=== PATIENT | male | born 1960 | race Caucasian/White ===

== ENCOUNTER 2016-05-13 16:01 | Emergency (ER) | payer MEDICAID ==
--- NOTE | 2016-05-13 16:29 | ER Document Report ---
ED Medical Screen (RME) - General Stated Complaint: LIGHTHEADED,SHORTNESS OF BREATH Notes: 55 yo male c/o shortness of breath, lightheaded and chest tightness since yesterday. no known cardiac hx. + hx/o COPD, HTN. previous smoker, quit 22yr ago. TRAVEL OUTSIDE OF THE [place] IN LAST 30 DAYS: No - Related Data Allergies/Adverse Reactions: bees Allergy (Severe, Uncoded 02/19/16 08:30) Anaphylaxis Past Medical History - Past Medical History Cardiac Medical History: Reports: Hx Atrial Fibrillation, Hx Hypertension Denies: Hx Coronary Artery Disease, Hx Heart Attack Pulmonary Medical History: Reports: Hx Asthma, Hx Bronchitis, Hx COPD, Hx Pneumonia Denies: Hx Tuberculosis Neurological Medical History: Denies: Hx Cerebrovascular Accident, Hx Seizures Musculoskeltal Medical History: Reports Hx Arthritis, Reports Hx Musculoskeletal Deformity - back problems Traumatic Medical History: Reports: Hx Fractures - r ankle Past Surgical History: Reports: Hx Appendectomy, Hx Orthopedic Surgery. Denies : Hx Pacemaker - Immunizations Immunizations up to date: Yes Hx Diphtheria, Pertussis, Tetanus Vaccination: Yes Physical Exam - Vital signs Vitals: Temp Pulse Resp BP Pulse Ox 98.0 F 106 H 20 152/96 H 98 05/13/16 16:13 05/13/16 16:13 05/13/16 16:13 05/13/16 16:13 05/13/16 16:13 Course - Vital Signs Vital signs: Temp Pulse Resp BP Pulse Ox 98.0 F 106 H 20 152/96 H 98 05/13/16 16:13 05/13/16 16:13 05/13/16 16:13 05/13/16 16:13 05/13/16 16:13
[2016-05-13] MEDS ORDERED: ASPIRIN 81 MG TABLET, CHEWABLE PO ONE (16:30)
[2016-05-13 17:05] LABS: ABSOLUTE BASOPHILS # (AUTO) 0.1 10^3/uL (0.0-0.2); ABSOLUTE EOSINOPHILS # (AUTO) 0.3 10^3/uL (0.0-0.6); ABSOLUTE LYMPHOCYTES (AUTO) 2.1 10^3/uL (0.5-4.7); ABSOLUTE MONOCYTES (AUTO) 0.6 10^3/uL (0.1-1.4); ABSOLUTE NEUT (AUTO) 7.2 10^3/uL (1.7-8.2); EOSINOPHILS % (AUTO) 2.6 % (0-6); HEMATOCRIT 42.4 % (37.9-51.0); HEMOGLOBIN 14.1 g/dL (13.5-17.0); HGB HCT DIFFERENCE -0.1; LYMPHOCYTES % (AUTO) 20.4 % (13-45); MEAN CORPUSCULAR HEMOGLOBIN 28.3 pg (27.0-33.4); MEAN CORPUSCULAR HGB CONC 33.3 g/dL (32.0-36.0); MEAN CORPUSCULAR VOLUME 85 fl (80-97); MONOCYTES % (AUTO) 5.4 % (3-13); RED BLOOD COUNT 4.99 10^6/uL (4.35-5.55); RED CELL DISTRIBUTION WIDTH 13.7 % (11.5-14.0); SEGMENTED NEUTROPHILS % (AUTO) 70.6 % (42-78); WHITE BLOOD COUNT 10.3 10^3/uL (4.0-10.5)
[2016-05-13 17:13] LABS: APPEARANCE,URINE CLEAR; BILIRUBIN,URINE NEGATIVE (NEGATIVE); GLUCOSE, URINE NEGATIVE (NEGATIVE); KETONES,URINE NEGATIVE (NEGATIVE); LEUKOCYTE ESTERASE,URINE NEGATIVE (NEGATIVE); NITRITE,URINE NEGATIVE (NEGATIVE); PROTEIN,URINE NEGATIVE (NEGATIVE); URINE SPECIFIC GRAVITY 1.018; UROBILINOGEN,URINE NEGATIVE mg/dL (<2.0)
[2016-05-13 17:26] LABS: ALANINE AMINOTRANSFERASE 45 U/L (21-72); ALBUMIN 4.4 g/dL (3.5-5.0); ALKALINE PHOSPHATASE 76 U/L (38-126); ANION GAP 15 (5-19); ASPARTATE AMINO TRANSFERASE 28 U/L (17-59); BILIRUBIN,TOTAL 0.6 mg/dL (0.2-1.3); BLOOD UREA NITROGEN 19 mg/dL (7-20); CARBON DIOXIDE 27 mmol/L (22-30); CHLORIDE 99 mmol/L (98-107); CREATINE KINASE 53 U/L (55-170); CREATININE RESULT 1.29 mg/dL (0.52-1.25); GLUCOSE 99 mg/dL (75-110); POTASSIUM 4.5 mmol/L (3.6-5.0); SODIUM 141.1 mmol/L (137-145); TOTAL PROTEIN 7.8 g/dL (6.3-8.2)
[2016-05-13 17:40] LABS: CREATINE KINASE MB < 0.22 ng/mL (<4.55); TROPONIN I < 0.012 ng/mL
--- NOTE | 2016-05-13 22:03 | ER Document Report ---
ED General - General Chief Complaint: Chest Tightness Stated Complaint: LIGHTHEADED,SHORTNESS OF BREATH Notes: Patient is a 55-year-old male presents with complaint of some chest tightness as well as difficulty breathing. Patient is a former smoker. Says he has been having some cough congestion and some wheezing over last few days. He does not have actual chest pain. He says his lungs just felt tight because of the shortness of breath. No fevers. No vomiting. No trauma. No other complaints at this time. TRAVEL OUTSIDE OF THE [place] IN LAST 30 DAYS: No - Related Data Allergies/Adverse Reactions: bees Allergy (Severe, Uncoded 05/13/16 16:27) Anaphylaxis Past Medical History - Social History Smoking Status: Former Smoker Chew tobacco use (# tins/day): No Frequency of alcohol use: None Drug Abuse: None Family History: Reviewed & Not Pertinent Patient has suicidal ideation: No Patient has homicidal ideation: No - Past Medical History Cardiac Medical History: Reports: Hx Atrial Fibrillation, Hx Hypertension Denies: Hx Coronary Artery Disease, Hx Heart Attack Pulmonary Medical History: Reports: Hx Asthma, Hx Bronchitis, Hx COPD, Hx Pneumonia Denies: Hx Tuberculosis Neurological Medical History: Denies: Hx Cerebrovascular Accident, Hx Seizures Renal/ Medical History: Denies: Hx Peritoneal Dialysis Musculoskeltal Medical History: Reports Hx Arthritis, Reports Hx Musculoskeletal Deformity - back problems Traumatic Medical History: Reports: Hx Fractures - r ankle Past Surgical History: Reports: Hx Appendectomy, Hx Orthopedic Surgery. Denies : Hx Pacemaker - Immunizations Immunizations up to date: Yes Hx Diphtheria, Pertussis, Tetanus Vaccination: Yes Hx Pneumococcal Vaccination: 05/13/09 Review of Systems - Review of Systems Notes: My Normal Review Basic REVIEW OF SYSTEMS: CONSTITUTIONAL : Denies fever, chills, or sweats. Denies recent illness. EENT: Congestion CARDIOVASCULAR: Some chest tightness. RESPIRATORY: Current cough. Some wheezing. GASTROINTESTINAL: Denies abdominal pain. Denies nausea, vomiting, or diarrhea. Denies constipation. Last BM: MUSCULOSKELETAL: Denies neck or back pain or joint pain or swelling. SKIN: Denies rash or skin lesions. NEUROLOGICAL: Denies altered mental status or loss of consciousness. Denies headache. Denies weakness or paralysis or loss of use of either side. Denies problems with gait or speech. Denies sensory or motor loss. ALL OTHER SYSTEMS REVIEWED AND NEGATIVE. Physical Exam - Vital signs Vitals: Temp Pulse Resp BP Pulse Ox 98.0 F 106 H 20 152/96 H 98 05/13/16 16:13 05/13/16 16:13 05/13/16 16:13 05/13/16 16:13 05/13/16 16:13 - Notes Notes: General Appearance: Well nourished, alert, cooperative, no acute distress, no obvious discomfort. Vitals: reviewed, See vital signs table. Head: no swelling or tenderness to the head Eyes: PERRL, EOMI, Conjuctiva clear Mouth: No decreasd moisture Neck: Supple, no neck tenderness, No thyromegaly Lungs: Scattered wheezing, No rales, No rhonci, No accessory muscle use, fair air exchange bilaterally. Heart: Normal rate, Regular rythm, No murmur, no rub Abdomen: Normal BS, soft, No rigidity, No abdominal tenderness, No guarding, no rebound, no abdominal masses, no organomegaly Extremities: strength 5/5 in all extremities, good pulses in all extremities, no swelling or tenderness in the extremities, no edema. Skin: warm, dry, appropriate color, no rash Neuro: speech clear, oriented x 3, normal affect, responds appropriately to questions. Course - Vital Signs Vital signs: Temp Pulse Resp BP Pulse Ox 98.4 F 94 16 124/79 97 05/14/16 00:58 05/14/16 00:58 05/14/16 00:58 05/14/16 00:58 05/14/16 00:58 - Laboratory Result Diagrams: 05/13/16 16:38 05/13/16 16:38 Laboratory results interpreted by me: 05/13/16 05/13/16 16:38 16:38 Creatinine 1.29 H Est GFR (Non-Af Amer) 58 L Creatine Kinase 53 L Urine Blood MODERATE H - EKG Interpretation by Me Additional EKG results interpreted by me: 05/13/16 22:03 EKG is reviewed and interpreted by me. EKG shows sinus tachycardia with rate [address] segment elevation or depression. No ischemic T wave inversions. LA interval, QRS duration, Intervals Are within Normal Range. No Old EKG Available for Comparison. - Transfer of Care Notes: 05/14/16 07:23 After the breathing treatment patient's wheezing is improved. His air movement has improved. He says the chest tightness is much improved with the breathing treatment. He has no actual chest pain. I do not think this is cardiac in nature. I think this is purely pulmonary related being that his symptoms improved with the breathing treatment. At this time I'll send him home with an inhaler and placement prednisone. I encouraged to return to ER immediately if he has actual pain in his chest, difficulty breathing, recurrent wheezing, or any worsening of his symptoms. Patient agrees with plan will be discharged home. Dictation of this chart was performed using voice recognition software; therefore, there may be some unintended grammatical errors. Discharge - Discharge Clinical Impression: Chest tightness, Bronchitis Condition: Good Disposition: HOME, SELF-CARE Additional Instructions: BRONCHITIS WITH BRONCHOSPASM (WHEEZING): You have bronchitis with bronchospasm (wheezing). Sometimes people develop wheezing with a chest cold. This occurs either because of an underlying tendency toward asthma or because the virus itself irritates the bronchial tubes. This irritation causes cough, shortness of breath, and wheezing. Emergency treatment of bronchospasm may include adrenaline shots or bronchodilator aerosol. You may feel lightheaded and have a rapid pulse for an hour or two. Rest and get plenty of fluids. At home, we'll treat you with a bronchodilator inhaler. Corticosteroids may be required for some patients. Until you recover, avoid chemical fumes, dusts, pollens, and exercising in very cold or dry air. If you smoke, stop now! Most cases of bronchitis get better without antibiotics. We prescribe antibiotics when we believe bacteria are damaging your airways, or if there's high risk the bronchitis will worsen into pneumonia. Increase your fluid intake. A cool mist humidifier may make your lungs more comfortable. An expectorant (cough medicine that loosens phlegm) can help. Repeated episodes of bronchitis and bronchospasm may result in lung damage -- for example, chronic bronchitis, recurrent pneumonias, or emphysema. If you develop a fever, increased wheezing, chest pain, or severe shortness of breath, you should contact the doctor immediately. INHALED BRONCHODILATORS: You have received a treatment of and/or prescription for an inhaled bronchodilator -- a medication which stimulates the airways in the lung to dilate. This improves the flow of air in asthma, bronchitis, and emphysema. These medicines have some similarity to adrenaline, and can cause similar side effects: shakiness, racing heart, and a sense of nervousness. These side effects decrease with time. Contact your doctor if these side effects are severe. Do not over-use the medicine. Too-frequent use of the inhaler may make it ineffective. Call your doctor if the inhaler is not controlling your symptoms at the prescribed doses. STEROID MEDICATION: You have been given an injection of or oral medicine of the cortisone/ steroid class. This medication is used to control inflammation or allergy. Zackery t is usually only given for a short period of time, until the acute process subsides. There are usually no side effects from short-term use of cortisone-like medications. Some persons feel an increased sense of well-being and are not sleepy at bedtime. Long-term use of cortisone medications is best avoided, unless required for a severe condition. If your condition does not remit, or relapses after the course of corticosteroid medication, you should consult your physician. FOLLOW-UP CARE: If you have been referred to a physician for follow-up care, call the physician s office for an appointment as you were instructed or within the next two days. If you experience worsening or a significant change in your symptoms, notify the physician immediately or return to the Emergency Department at any time for re-evaluation. Please return to ER if instead of having chest tightness you have actual chest pain. Please return to ER immediately if you have worsening difficulty breathing, worsening wheezing, fevers, or feel unwell. Please follow-up with your doctor in 2-3 days for reevaluation. Please use inhaler as 2 puffs every 4 hours as needed for wheezing. Prescriptions: Prednisone [Deltasone 20 mg Tablet] 3 tab PO DAILY 4 Days Forms: Return to Work Referrals: TRINA WONG MD [Primary Care Provider] - 05/15/16
[2016-05-13] MEDS ORDERED: IPRATROPIUM/ALBUTEROL 0.5-2.5 MG/3 ML AMPUL NEB ONE (22:06)
[2016-05-13] MEDS ORDERED: PREDNISONE 20 MG TABLET PO ONE (22:07)
[2016-05-14] MEDS ORDERED: ALBUTEROL SULFATE HFA (90 MCG/PUFF) 8 GM MDI (1 MDI/ER DISP) IH ONE (00:03)
[2016-05-14 01:00] VITALS: BP 124/79
--- NOTE | 2016-05-14 11:28 | EKG REPORT ---
SEVERITY:- OTHERWISE NORMAL ECG - SINUS TACHYCARDIA : Confirmed by: Vanessa Frias 14-May-2016 11:27:20
== END 2016-05-14 01:00 | disposition home or self-care (01) ==
LOC: ER 16:01
DX: J40 Bronchitis, not specified as acute or chronic (principal); R07.9 Chest pain, unspecified; R06.02 Shortness of breath; Z87.891 Personal history of nicotine dependence; Z91.030 Bee allergy status
CPT/HCPCS: 93005; 94640; 99285; 36415; 82553; 82550; 85025; 80053; 81001; 84484; 71020; 93010; J7512; J3490; J7620

== ENCOUNTER 2017-05-07 12:21 | Emergency (ER) | payer MEDICAID ==
[2017-05-07] MEDS ORDERED: DEXAMETHASONE SOD PHOS INJ 10 MG/1 ML VIAL IM ONE (13:27)
[2017-05-07] MEDS ORDERED: IPRATROPIUM/ALBUTEROL 0.5-2.5 MG/3 ML AMPUL NEB ONE (13:27)
--- NOTE | 2017-05-07 13:30 | ER Document Report ---
HPI - HPI Pain Level: 3 Notes: Patient is a 56-year-old male with a history of COPD and emphysema who presents to the ED complaining of a dry nonproductive cough, nasal congestion/discharge, fever, body ache, wheeze 1 week. Patient states that he is still eating and drinking without any difficulties. He is urinating normally and having normal bowel movements. Patient has not had any Tylenol or Motrin in the last 24 hours. He denies any drug allergies. Denies any other significant cardiac history. Denies any headache, fever, neck pain, sore throat, chest pain, palpitations, syncope, shortness of breath, dyspnea, abdominal pain, nausea/ vomiting/diarrhea, urinary retention, dysuria, hematuria, or rash. - ROS Systems Reviewed and Negative: Yes All other systems reviewed and negative - REPRODUCTIVE Reproductive: DENIES: : Past Medical History - Social History Smoking Status: Unknown if Ever Smoked Family History: Reviewed & Not Pertinent - Past Medical History Cardiac Medical History: Reports: Hx Atrial Fibrillation, Hx Hypertension Denies: Hx Coronary Artery Disease, Hx Heart Attack Pulmonary Medical History: Reports: Hx Asthma, Hx Bronchitis, Hx COPD, Hx Pneumonia Denies: Hx Tuberculosis Neurological Medical History: Denies: Hx Cerebrovascular Accident, Hx Seizures Renal/ Medical History: Denies: Hx Peritoneal Dialysis Musculoskeltal Medical History: Reports Hx Arthritis, Reports Hx Musculoskeletal Deformity - back problems Traumatic Medical History: Reports: Hx Fractures - r ankle Past Surgical History: Reports: Hx Appendectomy, Hx Orthopedic Surgery. Denies : Hx Pacemaker - Immunizations Immunizations up to date: Yes Hx Diphtheria, Pertussis, Tetanus Vaccination: Yes Hx Pneumococcal Vaccination: 05/13/09 Vertical Provider Document - CONSTITUTIONAL Agree With Documented VS: Yes Notes: PHYSICAL EXAMINATION: GENERAL: Well-appearing, well-nourished and in no acute distress. A&Ox4 HEAD: Atraumatic, normocephalic. EYES: Pupils equal round and reactive to light, extraocular movements intact, sclera anicteric, conjunctiva are normal. ENT: EAC clear b/l. TM's intact b/l without erythema, fluid, or perforation. Nares patent and with clear discharge. oropharynx mild erythema without exudates. 1+ tonsilar hypertrophy without erythema or exudate. No palatine shift. Uvula midline. No tongue protrusion. No drooling, hoarseness, or airway compromise. Moist mucous membranes. No sinus tenderness. NECK: Normal range of motion, supple without lymphadenopathy. No rigidity/ meningismus. LUNGS: wheezes b/l. decreased sounds. HEART: Regular rate and rhythm without murmurs, rubs, gallops. ABDOMEN: Soft, nontender, nondistended abdomen. No guarding, no rebound. No masses appreciated. Normal bowel sounds present. No CVA tenderness bilaterally. No hepatosplenomegaly. NEUROLOGICAL: Normal speech, normal gait. Normal sensory, motor exams PSYCH: Normal mood, normal affect. SKIN: Warm, Dry, normal turgor, no rashes or lesions noted. - INFECTION CONTROL TRAVEL OUTSIDE OF THE [place] IN LAST 30 DAYS: No - RESPIRATORY O2 Sat by Pulse Oximetry: 96 Course - Re-evaluation Re-evalutation: 05/07/17 14:50 Patient is an afebrile, well-hydrated, 56-year-old male who presents to the ED with influenza A. Vitals are stable. PE is otherwise unremarkable. Patient was given a DuoNeb, Decadron, and Tylenol. Patient does have a history of COPD. Lung sounds improved after treatment. Chest x-ray was unremarkable for any acute pathology. Low suspicion for any ACS, PE, pneumothorax, pericarditis , dissection, respiratory compromise, severe dehydration, sepsis, meningitis, or other systemic emergent condition at this time. Patient is aware that his condition can change from initial presentation and he needs to monitor symptoms closely and seek medical attention for any acute changes. Due to his comorbidities of COPD and wheezing on exam, I will send him home with a prescription for Tamiflu. Risks and benefits of treatment and without treatment were thoroughly reviewed with the patient and patient is in agreement. Recommend conservative measures for symptoms. Recheck with your PCM in 3-5 days. Return to the ED with any worsening/concerning symptoms otherwise as reviewed in discharge. Patient is in agreement. - Vital Signs Vital signs: Temp Pulse Resp BP Pulse Ox 100.3 F 116 H 18 132/75 H 96 05/07/17 12:33 05/07/17 12:33 05/07/17 12:33 05/07/17 12:33 05/07/17 12:33 Discharge - Discharge Clinical Impression: Influenza A Condition: Stable Disposition: HOME, SELF-CARE Additional Instructions: Maintain adequate fluid intake Take meds as directed tylenol/ibuprofen as needed over the counter cold medication as needed for symptoms Humidified air may help F/u: with your PCM in 2-3 days for a recheck Return to the ED with any fever, worsening pain, chest pain, palpitations, syncope, worsening BARTON, neck pain/stiffness, shortness of breath, wheezing, drooling, trouble swallowing/breathing, abdominal pain, n/v/d, rash, or worsening/concerning symptoms otherwise. Prescriptions: Oseltamivir Phosphate [Tamiflu] 75 mg PO BID #10 capsule Forms: Elevated Blood Pressure Referrals: [facility] [Provider Group] - Follow up as needed [facility] [Provider Group] - Follow up as needed
--- NOTE | 2017-05-07 14:33 | RADIOLOGY REPORT (SQ) ---
EXAM DESCRIPTION: CHEST PA/LAT COMPLETED DATE/TIME: 05/07/2017 2:16 pm REASON FOR STUDY: cough, fever COMPARISON: 05/13/2016 EXAM PARAMETERS: NUMBER OF VIEWS: two views TECHNIQUE: Digital Frontal and Lateral radiographic views of the chest acquired. RADIATION DOSE: NA LIMITATIONS: none FINDINGS: LUNGS AND PLEURA: Mild left basilar scarring. No acute opacities, masses or pneumothorax. No pleural effusion. MEDIASTINUM AND HILAR STRUCTURES: No masses or contour abnormalities. HEART AND VASCULAR STRUCTURES: Heart normal size. No evidence for failure. BONES: No acute findings. HARDWARE: None in the chest. OTHER: No other significant finding. IMPRESSION: No evidence of acute cardiopulmonary disease. TECHNICAL DOCUMENTATION: JOB ID: [id number] [employer]- All Rights Reserved
[2017-05-07 14:38] LABS: A TYPE INFLUENZA AG POSITIVE (NEGATIVE); B INFLUENZA AG NEGATIVE (NEGATIVE)
[2017-05-07] MEDS ORDERED: ACETAMINOPHEN 325 MG TABLET PO ONE (14:42)
[2017-05-07 15:03] VITALS: BP 140/80
== END 2017-05-07 15:03 | disposition home or self-care (01) ==
LOC: ER 12:21
DX: J09.X2 Influenza due to identified novel influenza A virus with other respiratory manifestations (principal); J44.9 Chronic obstructive pulmonary disease, unspecified; J43.9 Emphysema, unspecified; R05 Cough; R09.81 Nasal congestion; R09.89 Other specified symptoms and signs involving the circulatory and respiratory systems; R50.9 Fever, unspecified; M79.1 Myalgia
CPT/HCPCS: 94640; 99283; 96372; 87804; 71046; J1100; J7620

== ENCOUNTER 2017-08-06 21:12 | Emergency (ER) | payer MEDICARE, MEDICAID ==
[2017-08-06] MEDS ORDERED: IPRATROPIUM/ALBUTEROL 0.5-2.5 MG/3 ML AMPUL NEB ONE (22:35)
[2017-08-06] MEDS ORDERED: METHYLPREDNISOLONE INJ 125 MG/2 ML SDV IV ONE (22:35)
[2017-08-06] MEDS ORDERED: ASPIRIN 325 MG TABLET PO ONE (22:36)
--- NOTE | 2017-08-06 22:40 | ER Document Report ---
ED Respiratory Problem - General Chief Complaint: Shortness Of Breath Stated Complaint: SHORTNESS OF BREATH Time Seen by Provider: 08/06/17 22:22 Notes: The patient is a 57-year-old male, past medical history COPD, former smoker, presents with 2 days of wheezing, shortness of breath and chest pain when he takes deep breaths. He tried his albuterol at home without much relief of his symptoms. He denies leg swelling, hemoptysis, fevers, back pain, abdominal pain , nausea, vomiting, rash or headache. TRAVEL OUTSIDE OF THE [place] IN LAST 30 DAYS: No - Related Data Allergies/Adverse Reactions: bees Allergy (Severe, Uncoded 05/07/17 12:22) Anaphylaxis Past Medical History - General Information source: Patient - Social History Smoking Status: Former Smoker Family History: Reviewed & Not Pertinent - Past Medical History Cardiac Medical History: Reports: Hx Atrial Fibrillation, Hx Hypertension Denies: Hx Coronary Artery Disease, Hx Heart Attack Pulmonary Medical History: Reports: Hx Asthma, Hx Bronchitis, Hx COPD, Hx Pneumonia Denies: Hx Tuberculosis Neurological Medical History: Denies: Hx Cerebrovascular Accident, Hx Seizures Renal/ Medical History: Denies: Hx Peritoneal Dialysis Musculoskeltal Medical History: Reports Hx Arthritis, Reports Hx Musculoskeletal Deformity - back problems Traumatic Medical History: Reports: Hx Fractures - r ankle Past Surgical History: Reports: Hx Appendectomy, Hx Orthopedic Surgery. Denies : Hx Pacemaker - Immunizations Immunizations up to date: Yes Hx Diphtheria, Pertussis, Tetanus Vaccination: Yes Hx Pneumococcal Vaccination: 05/13/09 Review of Systems - Review of Systems Notes: REVIEW OF SYSTEMS: CONSTITUTIONAL: -fevers, -chills EENT: -eye pain, -difficulty swallowing, -nasal congestion CARDIOVASCULAR: +chest pain, -syncope. RESPIRATORY: -cough, +SOB GASTROINTESTINAL: -abdominal pain, -nausea, -vomiting, -diarrhea GENITOURINARY: -dysuria, -hematuria MUSCULOSKELETAL: -back pain, -neck pain SKIN: -rash or skin lesions. HEMATOLOGIC: -easy bruising or bleeding. LYMPHATIC: -swollen, enlarged glands. NEUROLOGICAL: -altered mental status or loss of consciousness, -headache, - neurologic symptoms PSYCHIATRIC: -anxiety, -depression. ALL OTHER SYSTEMS REVIEWED AND NEGATIVE. Physical Exam - Vital signs Vitals: Resp Pulse Ox 17 98 08/06/17 22:29 04/27/18 22:29 - Notes Notes: PHYSICAL EXAMINATION: GENERAL: Well-appearing, well-nourished and in no acute distress. HEAD: Atraumatic, normocephalic. EYES: Pupils equal round and reactive to light, extraocular movements intact, sclera anicteric, conjunctiva are normal. ENT: nares patent, oropharynx clear without exudates. Moist mucous membranes. NECK: Normal range of motion, supple without lymphadenopathy LUNGS: No respiratory distress, diffuse wheezing. Speaking in full sentences. HEART: Mild tachycardia, regular rhythm. ABDOMEN: Soft, nontender, normoactive bowel sounds. No guarding, no rebound. No masses appreciated. EXTREMITIES: Normal range of motion, no pitting or edema. No cyanosis. NEUROLOGICAL: Cranial nerves grossly intact. Normal speech, normal gait. Normal sensory and motor exams. PSYCH: Normal mood, normal affect. SKIN: Warm, Dry, normal turgor, no rashes or lesions noted. Course - Re-evaluation Re-evalutation: Patient appears well and is in no respiratory distress. He does have some wheezing diffusely. After Solu-Medrol and 3 duonebs, his wheezing completely resolved and he feels much better. Chest x-ray does not show any acute infiltrates and blood work is unremarkable. EKG does not show any ischemic changes and troponin is negative. Patient is low risk for PE, but unable to PERC out due to age and mild tachycardia. The d-dimer was negative, so this rules out PE. Provided patient with 4 more days of prednisone and a refill of his albuterol. Given very strict return precautions and he understands. - Vital Signs Vital signs: Temp Pulse Resp BP Pulse Ox 99 14 120/83 97 08/06/17 23:28 08/06/17 23:31 08/06/17 23:31 08/06/17 23:31 - Laboratory Result Diagrams: 08/06/17 23:28 08/07/17 00:26 Laboratory results interpreted by me: 08/06/17 08/07/17 23:28 00:26 WBC 11.4 H BUN 21 H Creatinine 1.33 H Est GFR (Non-Af Amer) 56 L Glucose 153 H - Diagnostic Test Radiology reviewed: Image reviewed, Reports reviewed Radiology results interpreted by me: CXR: NAD - EKG Interpretation by Me EKG shows normal: Sinus rhythm, Hubbard, Intervals, QRS Complexes, ST-T Waves Rate: Tachycardia Discharge - Discharge Clinical Impression: COPD exacerbation Condition: Stable Disposition: HOME, SELF-CARE Additional Instructions: BRONCHITIS WITH BRONCHOSPASM (WHEEZING): You have bronchitis with bronchospasm (wheezing). Sometimes people develop wheezing with a chest cold. This occurs either because of an underlying tendency toward asthma or because the virus itself irritates the bronchial tubes. This irritation causes cough, shortness of breath, and wheezing. Emergency treatment of bronchospasm may include adrenaline shots or bronchodilator aerosol. You may feel lightheaded and have a rapid pulse for an hour or two. Rest and get plenty of fluids. At home, we'll treat you with a bronchodilator inhaler. Corticosteroids may be required for some patients. Until you recover, avoid chemical fumes, dusts, pollens, and exercising in very cold or dry air. If you smoke, stop now! Most cases of bronchitis get better without antibiotics. We prescribe antibiotics when we believe bacteria are damaging your airways, or if there's high risk the bronchitis will worsen into pneumonia. Increase your fluid intake. A cool mist humidifier may make your lungs more comfortable. An expectorant (cough medicine that loosens phlegm) can help. Repeated episodes of bronchitis and bronchospasm may result in lung damage -- for example, chronic bronchitis, recurrent pneumonias, or emphysema. If you develop a fever, increased wheezing, chest pain, or severe shortness of breath, you should contact the doctor immediately. INHALED BRONCHODILATORS: You have received a treatment of and/or prescription for an inhaled bronchodilator -- a medication which stimulates the airways in the lung to dilate. This improves the flow of air in asthma, bronchitis, and emphysema. These medicines have some similarity to adrenaline, and can cause similar side effects: shakiness, racing heart, and a sense of nervousness. These side effects decrease with time. Contact your doctor if these side effects are severe. Do not over-use the medicine. Too-frequent use of the inhaler may make it ineffective. Call your doctor if the inhaler is not controlling your symptoms at the prescribed doses. STEROID MEDICATION: You have been given an injection of or oral medicine of the cortisone/ steroid class. This medication is used to control inflammation or allergy. Zackery t is usually only given for a short period of time, until the acute process subsides. There are usually no side effects from short-term use of cortisone-like medications. Some persons feel an increased sense of well-being and are not sleepy at bedtime. Long-term use of cortisone medications is best avoided, unless required for a severe condition. If your condition does not remit, or relapses after the course of corticosteroid medication, you should consult your physician. USE OF ACETAMINOPHEN (Tylenol): Acetaminophen may be taken for pain relief or fever control. It's much safer than aspirin, offering a wider range of "safe" dosages. It is safe during . Some brand names are Tylenol, Panadol, Datril, Anacin 3, Tempra, and Liquiprin. Acetaminophen can be repeated every four hours. The following are maximum recommended dosages: >89 pounds or adults 650 mg to 900 mg Acetaminophen can be repeated every four hours. Maximum dose not to exceed 4000 mg a day. SMOKING: If you smoke, you should stop smoking. The tar and chemicals in cigarette smoke are harmful. Smoking has been shown to cause: emphysema chronic bronchitis lung cancer mouth and throat cancer stomach and pancreas cancer premature aging defects In addition, smoking increases ear and lung infections in children of smokers. FOLLOW-UP CARE: If you have been referred to a physician for follow-up care, call the physician s office for an appointment as you were instructed or within the next two days. If you experience worsening or a significant change in your symptoms, notify the physician immediately or return to the Emergency Department at any time for re-evaluation. Prescriptions: Albuterol Sulfate [Proair HFA Inhalation Aerosol 8.5 gm MDI] 2 puff IH Q4H PRN # 1 mdi PRN Reason: Prednisone [Deltasone 20 mg Tablet] 3 tab PO DAILY 4 Days tablet Referrals: LUISITO RAHMAN DO [Primary Care Provider] - Follow up as needed
--- NOTE | 2017-08-06 23:04 | RADIOLOGY REPORT (SQ) ---
EXAM DESCRIPTION: CHEST 2 VIEWS CLINICAL HISTORY: 57 years Male, SOB COMPARISON: 1.26.18 NUMBER OF VIEWS/TECHNIQUE: 2, PA and Lateral LIMITATIONS: None. FINDINGS: Normal lung volume. Clear parenchyma. Prominent interstitium. Normal cardiac silhouette. Intact bony thorax. IMPRESSION: No acute cardiopulmonary findings.
[2017-08-06 23:51] LABS: ABSOLUTE BASOPHILS # (AUTO) 0.1 10^3/uL (0.0-0.2); ABSOLUTE EOSINOPHILS # (AUTO) 0.4 10^3/uL (0.0-0.6); ABSOLUTE LYMPHOCYTES (AUTO) 2.4 10^3/uL (0.5-4.7); ABSOLUTE MONOCYTES (AUTO) 0.7 10^3/uL (0.1-1.4); ABSOLUTE NEUT (AUTO) 7.8 10^3/uL (1.7-8.2); BASOPHILS % (AUTO) 1.1 % (0-2); EOSINOPHILS % (AUTO) 3.1 % (0-6); HEMATOCRIT 39.7 % (37.9-51.0); HEMOGLOBIN 13.5 g/dL (13.5-17.0); LYMPHOCYTES % (AUTO) 21.4 % (13-45); MEAN CORPUSCULAR HGB CONC 33.9 g/dL (32.0-36.0); MEAN CORPUSCULAR VOLUME 86 fl (80-97); MONOCYTES % (AUTO) 6.4 % (3-13); PLATELET COUNT 288 10^3/uL (150-450); RED BLOOD COUNT 4.65 10^6/uL (4.35-5.55); RED CELL DISTRIBUTION WIDTH 13.3 % (11.5-14.0); TOTAL CELLS COUNTED % (AUTO) 100 %; WHITE BLOOD COUNT 11.4 10^3/uL (4.0-10.5)
[2017-08-07 01:32] LABS: ALANINE AMINOTRANSFERASE 40 U/L (21-72); ALBUMIN 4.4 g/dL (3.5-5.0); ALKALINE PHOSPHATASE 55 U/L (38-126); ANION GAP 15 (5-19); ASPARTATE AMINO TRANSFERASE 31 U/L (17-59); BILIRUBIN,DIRECT 0.4 mg/dL (0.0-0.4); BILIRUBIN,TOTAL 0.8 mg/dL (0.2-1.3); BLOOD UREA NITROGEN 21 mg/dL (7-20); CALCIUM 9.5 mg/dL (8.4-10.2); CARBON DIOXIDE 27 mmol/L (22-30); CHLORIDE 99 mmol/L (98-107); CREATINE KINASE 56 U/L (55-170); GLUCOSE 153 mg/dL (75-110); POTASSIUM 3.9 mmol/L (3.6-5.0); SODIUM 141.1 mmol/L (137-145); TOTAL PROTEIN 7.5 g/dL (6.3-8.2)
[2017-08-07 02:37] VITALS: BP 139/85
--- NOTE | 2017-08-07 08:35 | EKG REPORT ---
SEVERITY:- OTHERWISE NORMAL ECG - SINUS TACHYCARDIA : Confirmed by: James Borrero MD 07-Aug-2017 08:34:36
== END 2017-08-07 03:10 | disposition home or self-care (01) ==
LOC: ER 21:12
DX: J44.1 Chronic obstructive pulmonary disease with (acute) exacerbation (principal); R07.9 Chest pain, unspecified; I48.91 Unspecified atrial fibrillation; I10 Essential (primary) hypertension; Z87.891 Personal history of nicotine dependence
CPT/HCPCS: 93005; 94640; 99285; 96374; 36415; 82550; 85025; 80053; 84484; 85379; 71046; 93010; A9270 ×2; J2930; J7620

== ENCOUNTER 2018-07-12 12:16 | Observation (INO) | payer MEDICARE, MEDICAID ==
--- NOTE | 2018-07-12 12:50 | ER Document Report ---
ED Medical Screen (RME) - General Chief Complaint: Palpitations Stated Complaint: BLOOD PRESSURE ISSUES Time Seen by Provider: 07/12/18 12:42 Primary Care Provider: LUISITO RAHMAN DO [Primary Care Provider] - Follow up as needed TRAVEL OUTSIDE OF THE [place] IN LAST 30 DAYS: No - HPI Notes: 07/12/18 12:47 Patient is a 58-year-old male with a history of hypertension and COPD who p resents emergency department for feeling chest heaviness/tightness and feeling of someone sitting on his chest about an hour ago which has since resolved. Patient states that he did not have any shortness of breath or dyspnea on exertion during the episode. The symptoms lasted for about 20 minutes. Patient states that he was at his family doctor around 9 AM and was noted to have a pulse in the 150s on pulse ox, but patient states that he otherwise was feeling fine. No history of SD or CHF. Denies any headache, fever, neck pain, URI, sore throat, palpitations, syncope, cough, shortness of breath, wheeze, dyspnea, abdominal pain, nausea/vomiting/diarrhea, urinary retention, dysuria, hematuria, or rash. I have treated and performed a rapid initial assessment of this patient. A comprehensive ED assessment and evaluation of the patient, analysis of test results and completion of medical decision making process will be conducted by additional ED providers. PHYSICAL EXAMINATION: GENERAL: Well-appearing, well-nourished and in no acute distress. A&Ox4. Answers questions appropriately. LUNGS: Breath sounds clear to auscultation bilaterally and equal. No wheezes rales or rhonchi. HEART: Regular rate and rhythm without murmurs, rubs, gallops. Extremities: No cyanosis, clubbing, or edema b/l. NEUROLOGICAL: Normal speech, normal gait. PSYCH: Normal mood, normal affect. - Related Data Allergies/Adverse Reactions: bees Allergy (Severe, Uncoded 07/12/18 12:18) Anaphylaxis Past Medical History - Social History Frequency of alcohol use: Rare Drug Abuse: None - Past Medical History Cardiac Medical History: Reports: Hx Atrial Fibrillation, Hx Hypertension Denies: Hx Coronary Artery Disease, Hx Heart Attack Pulmonary Medical History: Reports: Hx Asthma, Hx Bronchitis, Hx COPD, Hx Pneumonia Denies: Hx Tuberculosis Neurological Medical History: Denies: Hx Cerebrovascular Accident, Hx Seizures Renal/ Medical History: Denies: Hx Peritoneal Dialysis GI Medical History: Reports: Hx Gastroesophageal Reflux Disease Musculoskeltal Medical History: Reports Hx Arthritis, Reports Hx Musculoskeletal Deformity - back problems Traumatic Medical History: Reports: Hx Fractures - r ankle Past Surgical History: Reports: Hx Abdominal Surgery - hernia repair x2, Hx Appendectomy, Hx Orthopedic Surgery - right ankle. Denies: Hx Pacemaker - Immunizations Immunizations up to date: Yes Hx Diphtheria, Pertussis, Tetanus Vaccination: Yes Physical Exam - Vital signs Vitals: Temp Pulse Resp BP Pulse Ox 98.0 F 105 H 15 154/92 H 100 07/12/18 12:32 07/12/18 12:32 07/12/18 12:32 07/12/18 12:32 07/12/18 12:32 Course - Vital Signs Vital signs: Temp Pulse Resp BP Pulse Ox 98.0 F 105 H 15 154/92 H 100 07/12/18 12:32 07/12/18 12:32 07/12/18 12:32 07/12/18 12:32 07/12/18 12:32 Doctor's Discharge - Discharge Referrals: LUISITO RAHMAN DO [Primary Care Provider] - Follow up as needed
[2018-07-12 13:31] LABS: ABSOLUTE EOSINOPHILS # (AUTO) 0.1 10^3/uL (0.0-0.6); ABSOLUTE LYMPHOCYTES (AUTO) 1.3 10^3/uL (0.5-4.7); ABSOLUTE MONOCYTES (AUTO) 0.4 10^3/uL (0.1-1.4); ABSOLUTE NEUT (AUTO) 8.4 10^3/uL (1.7-8.2); BASOPHILS % (AUTO) 0.3 % (0-2); EOSINOPHILS % (AUTO) 0.5 % (0-6); HEMOGLOBIN 14.9 g/dL (13.5-17.0); LYMPHOCYTES % (AUTO) 12.8 % (13-45); MEAN CORPUSCULAR HEMOGLOBIN 29.5 pg (27.0-33.4); MEAN CORPUSCULAR HGB CONC 34.7 g/dL (32.0-36.0); MEAN CORPUSCULAR VOLUME 85 fl (80-97); MONOCYTES % (AUTO) 3.9 % (3-13); PLATELET COUNT 306 10^3/uL (150-450); RED BLOOD COUNT 5.06 10^6/uL (4.35-5.55); RED CELL DISTRIBUTION WIDTH 12.9 % (11.5-14.0); SEGMENTED NEUTROPHILS % (AUTO) 82.5 % (42-78); TOTAL CELLS COUNTED % (AUTO) 100 %; WHITE BLOOD COUNT 10.2 10^3/uL (4.0-10.5)
--- NOTE | 2018-07-12 13:31 | EKG REPORT ---
SEVERITY:- NORMAL ECG - SINUS RHYTHM : Confirmed by: James Borrero MD 12-Jul-2018 13:30:37
--- NOTE | 2018-07-12 13:39 | RADIOLOGY REPORT (SQ) ---
EXAM DESCRIPTION: CHEST SINGLE VIEW COMPLETED DATE/TIME: 07/12/2018 1:20 pm REASON FOR STUDY: chest tightness COMPARISON: 08/06/2017 EXAM PARAMETERS: NUMBER OF VIEWS: One view. TECHNIQUE: Single frontal radiographic view of the chest acquired. RADIATION DOSE: NA LIMITATIONS: None. FINDINGS: LUNGS AND PLEURA: No opacities, masses or pneumothorax. No pleural effusion. MEDIASTINUM AND HILAR STRUCTURES: No masses. Contour normal. HEART AND VASCULAR STRUCTURES: Heart normal in size. Normal vasculature. BONES: No acute findings. HARDWARE: None in the chest. OTHER: No other significant finding. IMPRESSION: 1. NO ACUTE RADIOGRAPHIC FINDING IN THE CHEST. TECHNICAL DOCUMENTATION: JOB ID: [id number] [employer]- All Rights Reserved Reading location - IP/workstation name: [email or web address]
[2018-07-12 13:54] LABS: ALANINE AMINOTRANSFERASE 39 U/L (21-72); ALBUMIN 4.9 g/dL (3.5-5.0); ALKALINE PHOSPHATASE 88 U/L (38-126); ANION GAP 14 (5-19); ASPARTATE AMINO TRANSFERASE 23 U/L (17-59); BILIRUBIN,DIRECT 0.4 mg/dL (0.0-0.4); BLOOD UREA NITROGEN 16 mg/dL (7-20); CALCIUM 10.6 mg/dL (8.4-10.2); CARBON DIOXIDE 28 mmol/L (22-30); CHLORIDE 97 mmol/L (98-107); GLUCOSE 99 mg/dL (75-110); POTASSIUM 3.8 mmol/L (3.6-5.0); SODIUM 138.9 mmol/L (137-145); TOTAL PROTEIN 8.4 g/dL (6.3-8.2)
[2018-07-12 14:07] LABS: NT PRO BNP 44 pg/mL (5-900)
[2018-07-12 14:10] LABS: TROPONIN I < 0.012 ng/mL
[2018-07-12 14:17] LABS: FREE T3 4.6 pg/mL (2.77-5.27); FREE T4 (FREE THYROXINE) 1.43 ng/dL (0.78-2.19)
[2018-07-12 14:31] LABS: THYROID STIMULATING HORMONE 1.15 uIU/mL (0.47-4.68)
--- NOTE | 2018-07-12 15:02 | ER Document Report ---
ED General - General Chief Complaint: Palpitations Stated Complaint: BLOOD PRESSURE ISSUES Time Seen by Provider: 07/12/18 12:42 TRAVEL OUTSIDE OF THE [place] IN LAST 30 DAYS: No - HPI Notes: 58-year-old male with COPD and hypertension presents to the ED for complaints of exertional chest pain while walking from his car inside the house today lasted for approximately 5 minutes and went away. Reports he felt like "someone was sitting on my chest" earlier but patient is currently not having any chest pain. Patient's blood pressure was in the 170/90s earlier when at doctors. patient does not take a baby aspirin. States when he went to his pain management appointment today, his blood pressure was elevated as well as heart rate. Patient did have a stress test and echocardiogram performed 2012 which was negative however has not been evaluated by a medical hospital [facility] since 2012. His primary care provider is Dr. Plaza, he does go to pain management he also does see a demolition engineer in [facility]. Chest pain started today. Patient is around secondhand smoke, did smoke 45 years ago. Sister who is 57 recently had a heart attack, denies mother and father with [place], stroke or CAD. Denies fevers, chills, shortness of breath, dyspnea, nausea, vomiting, diarrhea, abdominal pain, hematuria,blurred vision, double vision, loss of vision, speech changes, LH, dizziness, syncope, headaches, wheezing, ST, URI, neck pain, weakness, bowel or bladder dysfunction, saddle anesthesia, numbness or tingling in bilateral upper or lower extremities equally, muscle paralysis, weakness in bilateral upper or lower extremities equally or rash. - Related Data Allergies/Adverse Reactions: bees Allergy (Severe, Uncoded 07/12/18 12:18) Anaphylaxis Past Medical History - General Information source: Patient - Social History Smoking Status: Never Smoker Frequency of alcohol use: Rare Drug Abuse: None Family History: Reviewed & Not Pertinent Patient has suicidal ideation: No Patient has homicidal ideation: No - Past Medical History Cardiac Medical History: Reports: Hx Atrial Fibrillation, Hx Hypertension Denies: Hx Coronary Artery Disease, Hx Heart Attack Pulmonary Medical History: Reports: Hx Asthma, Hx Bronchitis, Hx COPD, Hx Pneumonia Denies: Hx Tuberculosis Neurological Medical History: Denies: Hx Cerebrovascular Accident, Hx Seizures Renal/ Medical History: Denies: Hx Peritoneal Dialysis GI Medical History: Reports: Hx Gastroesophageal Reflux Disease Musculoskeletal Medical History: Reports Hx Arthritis, Reports Hx Musculoskeletal Deformity - back problems Traumatic Medical History: Reports: Hx Fractures - r ankle Past Surgical History: Reports: Hx Abdominal Surgery - hernia repair x2, Hx Appendectomy, Hx Orthopedic Surgery - right ankle. Denies: Hx Pacemaker - Immunizations Immunizations up to date: Yes Hx Diphtheria, Pertussis, Tetanus Vaccination: Yes Hx Pneumococcal Vaccination: 05/13/09 Review of Systems - Review of Systems Constitutional: See HPI EENT: No symptoms reported Cardiovascular: See HPI Respiratory: No symptoms reported Gastrointestinal: No symptoms reported Genitourinary: No symptoms reported Male Genitourinary: No symptoms reported Musculoskeletal: No symptoms reported Skin: No symptoms reported Hematologic/Lymphatic: No symptoms reported Neurological/Psychological: No symptoms reported Physical Exam - Vital signs Vitals: Temp Pulse Resp BP Pulse Ox 98.0 F 105 H 15 154/92 H 100 07/12/18 12:32 07/12/18 12:32 07/12/18 12:32 07/12/18 12:32 07/12/18 12:32 - Notes Notes: PHYSICAL EXAMINATION: GENERAL: Chronically ill appearing, well-nourished and in no acute distress. HEAD: Atraumatic, normocephalic. EYES: Pupils equal round and reactive to light, extraocular movements intact, sclera anicteric, conjunctiva are normal. ENT: Nares patent, oropharynx clear without exudates. Moist mucous membranes. NECK: Normal range of motion, supple without lymphadenopathy LUNGS: Breath sounds clear to auscultation bilaterally and equal. No wheezes rales or rhonchi. HEART: Regular rate and rhythm without murmurs ABDOMEN: Soft, nontender, nondistended abdomen. No guarding, no rebound. No masses appreciated. Musculoskeletal: Normal range of motion, no pitting or edema. No cyanosis. NEUROLOGICAL: Cranial nerves grossly intact. Normal speech, normal gait. Normal sensory, motor exams PSYCH: Normal mood, normal affect. SKIN: Warm, Dry, normal turgor, no rashes or lesions noted. Course - Re-evaluation Re-evalutation: 07/12/18 18:24 58-year-old male history of COPD and hypertension who is afebrile slightly tachycardic initially however in room patient is heart rate is around 80, slightly hypertensive in 150s over 60s presents for evaluation of chest pain tightness while walking from the car into the house, resolved when he was at rest approximately 4 hours ago. Initial troponin is negative, EKG negative for acute STEMI, no ST segment changes, CBC negative for leukocytosis or anemia, CMP negative for hepatic renal dysfunction. Chest x-ray negative for pneumonia, pneumothorax or other acute findings. Heart score is 4, giving her a 12-16.6% chance of major adverse cardiac event in 6 weeks. patient remains chest pain- free throughout duration of stay in the ED however patient has been sedentary and at rest. No nitro has been given as patient has active chest pain while under this provider's care. patient given 324 baby aspirin and she will, afebrile vitals stable no distress. Due to patient having unstable angina symptoms on exertion, elevated blood pressure, has not been evaluated by a medical hospital [facility] or had a echocardiogram or stress test since 2012, feel this patient does need to be under observation to assess for chest pain. Patient was agreeable with this plan of care and agree with plan of care. Hospitalist Dr. Bob Alvarenga, will admit patient to hospitalist service for observation under medical service. All questions and concerns answered by this provider. Awaiting for repeat of second troponin - Vital Signs Vital signs: Temp Pulse Resp BP Pulse Ox 98.0 F 105 H 24 H 134/88 H 97 07/12/18 12:32 07/12/18 12:32 07/12/18 15:01 07/12/18 15:01 07/12/18 15:01 - Laboratory Result Diagrams: 07/12/18 13:08 07/12/18 13:08 Laboratory results interpreted by me: 07/12/18 07/12/18 07/12/18 13:08 13:08 13:08 Seg Neutrophils % 82.5 H Lymphocytes % 12.8 L Absolute Neutrophils 8.4 H Chloride 97 L Creatinine 1.37 H Est GFR (Non-Af Amer) 54 L Calcium 10.6 H Creatine Kinase 42 L Total Protein 8.4 H Discharge - Discharge Clinical Impression: Unstable angina, COPD (chronic obstructive pulmonary disease) Condition: Stable Disposition: ADMITTED OBSERVATION Admitting Provider: Hospitalist - Dr. Bob Alvarenga Unit Admitted: Telemetry
[2018-07-12] MEDS ORDERED: ASPIRIN 81 MG TABLET, CHEWABLE PO ONE (15:21)
[2018-07-12] MEDS ORDERED: IPRATROPIUM/ALBUTEROL 0.5-2.5 MG/3 ML AMPUL NEB ONE (15:28)
[2018-07-12] MEDS ORDERED: ACETAMINOPHEN 325 MG TABLET PO PRN (16:59)
[2018-07-12] MEDS ORDERED: ONDANSETRON 4 MG TAB.RAPDIS PO PRN (16:59)
[2018-07-12] MEDS ORDERED: NORMAL SALINE 1000 ML 1,000 ML IV PRN (16:59)
[2018-07-12 19:24] LABS: CREATINE KINASE MB < 0.22 ng/mL (<4.55); TROPONIN I < 0.012 ng/mL
[2018-07-12] MEDS: ALBUTEROL SULFATE 0.083% NEB 2.5 MG/3 ML AMPUL NEB SCH (19:25)
--- NOTE | 2018-07-12 21:31 | PDOC H&P ---
History of Present Illness Admission Date/PCP: 07/12/18 15:43 LUISITO RAHMAN DO Patient complains of: Central chest pressure with history of COPD, hypertension and morbid obesity. History of Present Illness: DEBORAH BHARDWAJ is a 58 year old male with a history of chronic obstructive pulmonary disease with emphysema and asthma. He has history of hypertension but no acute cardiac episodes and no history of diagnosed coronary artery disease. He was at his scheduled pain clinic appointment. He was noted to have increased blood pressure and increased heart rate. He returned home. While he was walking into the house he had his expected difficulty breathing walking up 5 stairs but once in the house he developed central chest pressure. It was substernal. It did not radiate. It was not associated with diaphoresis, nausea or vomiting. It quickly resolved with rest. At that point he had his take him to the emergency room. He was evaluated and had a negative first troponin but with his comorbidities and history of this current episode he was referred to the hospitalist for admission to rule out acute coronary event. Past Medical History Cardiac Medical History: Reports: Atrial Fibrillation, Hypertension Denies: Coronary Artery Disease, Myocardial Infarction Pulmonary Medical History: Reports: Asthma, Bronchitis, Chronic Obstructive Pulmonary Disease (COPD), Pneumonia Denies: Tuberculosis Neurological Medical History: Denies: Seizures GI Medical History: Reports: Gastroesophageal Reflux Disease Musculoskeltal Medical History: Reports: Arthritis Hematology: Denies: Anemia Past Surgical History Past Surgical History: Reports: Appendectomy, Orthopedic Surgery - right ankle Denies: Pacemaker Social History Information Source: Patient Lives with: Family Smoking Status: Former Smoker - No tobacco for 26 years Frequency of Alcohol Use: Rare Hx Recreational Drug Use: No Hx Prescription Drug Abuse: No - Advance Directive Resuscitation Status: Full Code Surrogate healthcare decision maker:: No formal healthcare proxy documentation but his is the designated decision maker. Family History Family History: CAD, COPD, Other - Alpha-1 antitrypsin deficiency Parental Family History Reviewed: Yes Children Family History Reviewed: Yes Sibling(s) Family History Reviewed.: Yes - Sister with acute myocardial infarction 2 weeks ago Medication/Allergy Home Medications: Albuterol Sulfate [Ventolin Hfa 8 gm Mdi (1 Mdi/ER Disp)] 2 puff IN Q4H 07/12/18 Budesonide/Formoterol Fumarate [Symbicort Hfa 160-4.5 Mcg Inhaler 6 gm] 2 puff IH Q12 07/12/18 Furosemide [Lasix 20 mg Tablet] 1 tab PO DAILY 07/12/18 Montelukast Sodium [Singulair 10 mg Tablet] 10 mg PO QHS 07/12/18 Omeprazole 1 tab PO DAILY 07/12/18 Oxycodone HCl [Oxycodone HCl ER] 10 mg PO Q6H PRN 07/12/18 Tamsulosin HCl [Flomax 0.4 mg Cap.sr] 1 tab PO DAILY 07/12/18 Tiotropium [place] [Spiriva Handihaler 5 Cap/Kit (18 Mcg/Cap)] 1 cap IN DAILY 07/12/18 Triamterene/Hydrochlorothiazid [Triamterene-Hctz 37.5-25 mg Cp] 1 each PO DAILY 07/12/18 Allergies/Adverse Reactions: bees Allergy (Severe, Uncoded 07/12/18 12:18) Anaphylaxis Review of Systems Constitutional: PRESENT: as per HPI Eyes: ABSENT: visual disturbances Ears: ABSENT: hearing changes Nose, Mouth, and Throat: ABSENT: mouth pain, sore throat Cardiovascular: PRESENT: chest pain. ABSENT: edema, orthropnea, palpitations Respiratory: PRESENT: dyspnea. ABSENT: cough, sputum Gastrointestinal: ABSENT: abdominal pain, coffee ground emesis, heartburn, nausea, vomiting Genitourinary: ABSENT: difficulty urinating, dysuria, hematuria Musculoskeletal: ABSENT: muscle weakness Integumentary: ABSENT: diaphoresis, pruritus, rash Neurological: ABSENT: abnormal movements, abnormal speech, confusion, memory loss, syncope Psychiatric: ABSENT: anxiety, depression, hallucinations Endocrine: ABSENT: cold intolerance, heat intolerance, polydipsia, polyuria Hematologic/Lymphatic: ABSENT: easy bleeding, easy bruising Physical Exam Vital Signs: Temp Pulse Resp BP Pulse Ox 98.0 F 105 H 24 H 134/88 H 97 07/12/18 12:32 07/12/18 12:32 07/12/18 15:01 07/12/18 15:01 07/12/18 15:01 Intake & Output 07/11/18 07/12/18 07/13/18 06:59 06:59 06:59 Weight 124.7 kg General appearance: PRESENT: no acute distress, cooperative, morbidly obese Head exam: PRESENT: atraumatic, normocephalic Eye exam: PRESENT: conjunctiva pink, EOMI. ABSENT: scleral icterus Ear exam: PRESENT: normal external ear exam Mouth exam: PRESENT: moist, tongue midline Neck exam: PRESENT: full ROM. ABSENT: carotid bruit, lymphadenopathy Respiratory exam: PRESENT: clear to auscultation oxana, symmetrical, unlabored. ABSENT: prolonged expiratory phas, rales, rhonchi, wheezes Cardiovascular exam: PRESENT: RRR, +S1, +S2 Pulses: PRESENT: normal radial pulses, normal dorsalis pedis pul GI/Abdominal exam: PRESENT: normal bowel sounds, soft, other - Protuberant abdomen. ABSENT: tenderness Rectal exam: PRESENT: deferred Extremities exam: ABSENT: calf tenderness, pedal edema Musculoskeletal exam: PRESENT: ambulatory Neurological exam: PRESENT: alert, awake, oriented to person, oriented to place, oriented to time, oriented to situation, CN II-XII grossly intact Psychiatric exam: PRESENT: appropriate affect, normal mood. ABSENT: agitated, anxious Focused psych exam: ABSENT: delusional, restlessness Skin exam: PRESENT: dry, warm. ABSENT: rash Results Laboratory Results: 07/12/18 13:08 07/12/18 13:08 07/12/18 07/12/18 07/12/18 13:08 13:08 13:08 WBC 10.2 RBC 5.06 Hgb 14.9 Hct 43.0 MCV 85 MCH 29.5 MCHC 34.7 RDW 12.9 Plt Count 306 Seg Neutrophils % 82.5 H Lymphocytes % 12.8 L Monocytes % 3.9 Eosinophils % 0.5 Basophils % 0.3 Absolute Neutrophils 8.4 H Absolute Lymphocytes 1.3 Absolute Monocytes 0.4 Absolute Eosinophils 0.1 Absolute Basophils 0.0 Sodium 138.9 Potassium 3.8 Chloride 97 L Carbon Dioxide 28 Anion Gap 14 BUN 16 Creatinine 1.37 H Est GFR ( Amer) > 60 Est GFR (Non-Af Amer) 54 L Glucose 99 Calcium 10.6 H Total Bilirubin 1.0 AST 23 ALT 39 Alkaline Phosphatase 88 Total Protein 8.4 H Albumin 4.9 TSH 1.15 Free T4 1.43 Free T3 pg/mL 4.60 07/12/18 07/12/18 07/12/18 13:08 13:08 13:08 Creatine Kinase 42 L CK-MB (CK-2) < 0.22 Troponin I < 0.012 Cancelled NT-Pro-B Natriuret Pep 44 07/12/18 15:42 Creatine Kinase CK-MB (CK-2) Troponin I < 0.012 NT-Pro-B Natriuret Pep Impressions: Chest X-Ray 07/12/18 12:49 IMPRESSION: 1. NO ACUTE RADIOGRAPHIC FINDING IN THE CHEST. Assessment and Plan - Diagnosis (1) Chest pain in adult Is this a current diagnosis for this admission?: Yes Plan: Family history of coronary disease with comorbidities including former smoker and obesity. The patient be admitted to telemetry. Serial cardiac enzymes will be drawn. Further determination of additional workup will be based on his laboratory studies. (2) Hypertension Qualifiers: Hypertension type: essential hypertension Qualified Code(s): I10 - Essential (primary) hypertension Is this a current diagnosis for this admission?: Yes Plan: Continue furosemide and hydrochlorothiazide. Triamterene not available. Adjust medications if needed. (3) Gastroesophageal reflux disease Qualifiers: Esophagitis presence: without esophagitis Qualified Code(s): K21.9 - Gastro-esophageal reflux disease without esophagitis Is this a current diagnosis for this admission?: Yes Plan: Continue proton pump inhibitor therapy. (4) COPD (chronic obstructive pulmonary disease) Qualifiers: COPD type: emphysema Is this a current diagnosis for this admission?: Yes Plan: It is hard to distinguish the patient shortness of breath from his underlying COPD versus an acute coronary issue. The patient did not report a noticeable change in the quality of his breathing however he did have associated chest pressure. We will continue the patient's Symbicort and have scheduled and as needed nebulizer treatments available. (5) Obesity (BMI 30-39.9) Is this a current diagnosis for this admission?: Yes Plan: Clearly a risk factor for coronary disease as well as a factor in his breathing. Encourage weight loss with diet and exercise as appropriate. - Time Time Spent with patient: 55 minutes Time Spent with patient: 35 or more minutes Medications reviewed and adjusted accordingly: Yes Anticipated discharge: Home Within: within 48 hours - Plan Summary Plan Summary: Serial troponins. Monitor vital signs. Additional treatment will be based on initial workup.
[2018-07-12] MEDS: HEPARIN SOD (PORCINE) 5,000 UNIT/ML 1 ML SYRINGE SUBCUT SCH (21:39)
[2018-07-12] MEDS ORDERED: MONTELUKAST SODIUM 10 MG TABLET PO SCH (22:00)
[2018-07-13 01:38] LABS: CREATINE KINASE MB < 0.22 ng/mL (<4.55); TROPONIN I < 0.012 ng/mL
[2018-07-13] MEDS: ALBUTEROL SULFATE 0.083% NEB 2.5 MG/3 ML AMPUL NEB SCH ×3 (02:59→13:41)
[2018-07-13] MEDS: HEPARIN SOD (PORCINE) 5,000 UNIT/ML 1 ML SYRINGE SUBCUT SCH ×2 (06:07→13:56)
[2018-07-13] MEDS ORDERED: TIOTROPIUM BROMIDE DPI 5 CAP/KIT (18 MCG/CAP) IH SCH (10:00)
[2018-07-13] MEDS ORDERED: (PENDING PHARMACY ID) (Omeprazole [Omeprazole] 1 TAB) PO SCH (10:00)
[2018-07-13] MEDS ORDERED: HYDROCHLOROTHIAZIDE 25 MG TABLET PO SCH (10:00)
[2018-07-13] MEDS ORDERED: TAMSULOSIN HCL 0.4 MG CAP.SR.24H PO SCH (10:00)
[2018-07-13] MEDS ORDERED: TRIAMTERENE/HYDROCHLOROTHIAZIDE 37.5-25 MG TABLET PO SCH (10:00)
[2018-07-13] MEDS ORDERED: FUROSEMIDE 20 MG TABLET PO SCH (10:00)
[2018-07-13] MEDS ORDERED: PANTOPRAZOLE SODIUM 20 MG TABLET.DR PO SCH (10:00)
[2018-07-13] MEDS ORDERED: LORATADINE 10 MG TABLET PO SCH (10:00)
[2018-07-13] MEDS ORDERED: (PENDING PHARMACY ID) (Triamterene/Hydrochlorothiazid [Triamterene-Hctz 37.5-25 Mg Cp] 1 E PO SCH (10:00)
[2018-07-13] MEDS ORDERED: FLUTICASONE/VILANTEROL 200-25 MCG/DOSE IH SCH (10:00)
[2018-07-13 14:40] VITALS: BP 144/85
--- NOTE | 2018-07-13 19:56 | PDOC DISCHARGE SUMMARY ---
General - Admit/Disc Date/PCP Admission Date/Primary Care Provider: 07/12/18 15:43 LUISITO RAHMAN, DO Discharge Date: 07/13/18 - Discharge Diagnosis (1) Chest pain in adult Is this a current diagnosis for this admission?: Yes Summary: I believe the chest pain is noncardiac. The patient does get dyspneic with exertion from his chronic obstructive pulmonary disease. This likely helps to create the sensation of discomfort. His serial troponins were negative. He has seen Dr. Borrero before study whether it be stress echocardiogram or nuclear stress test. The patient will resume his current medication regimen. (2) Hypertension Is this a current diagnosis for this admission?: Yes Summary: The patient's blood pressure is not ideally controlled. It is likely that when he gets short of breath with exertion his blood pressure goes up. He would benefit from an adjustment in his medication regimen. Because he is going to follow-up with cardiology I did not make any adjustments at the time of discharge. (3) Gastroesophageal reflux disease Is this a current diagnosis for this admission?: Yes Summary: This could be a component of his chest discomfort however he denies symptoms of acid reflux. He will continue his proton pump inhibitor therapy. (4) COPD (chronic obstructive pulmonary disease) Is this a current diagnosis for this admission?: Yes Summary: He is comfortable at rest on room air. He will return to his Symbicort as well as Singulair and loratadine. He does have Spiriva as part of his daily regimen as well. Rescue inhaler is available. (5) Obesity (BMI 30-39.9) Is this a current diagnosis for this admission?: Yes Summary: Certainly a significant comorbidity for his respiratory status hypotension and coronary disease. He should try to maintain a strict cardiac diet with a goal of weight loss. - Additional Information Resuscitation Status: Full Code Discharge Diet: Cardiac Discharge Activity: Activity As Tolerated, Balance Activity w/Rest Home Medications: Albuterol Sulfate [Ventolin Hfa 8 gm Mdi (1 Mdi/ER Disp)] 2 puff IN Q4H 07/12/18 Budesonide/Formoterol Fumarate [Symbicort HFA 160-4.5 mcg Inhaler 6 gm] 2 puff IH Q12 07/12/18 Furosemide [Lasix 20 mg Tablet] 1 tab PO DAILY 07/12/18 Montelukast Sodium [Singulair 10 mg Tablet] 10 mg PO QHS 07/12/18 Omeprazole 1 tab PO DAILY 07/12/18 Oxycodone HCl [Oxycodone HCl ER] 10 mg PO Q6H PRN 07/12/18 Tamsulosin HCl [Flomax 0.4 mg Cap.sr] 1 tab PO DAILY 07/12/18 Tiotropium [place] [Spiriva Handihaler 5 Cap/Kit (18 Mcg/Cap)] 1 cap IN DAILY 07/12/18 Triamterene/Hydrochlorothiazid [Triamterene-Hctz 37.5-25 mg Cp] 1 each PO DAILY 07/12/18 Loratadine [Claritin 10 mg Tablet] 10 mg PO DAILY tablet 07/13/18 History of Present Illness Patient complains of: Chest pressure History of Present Illness: The patient was attending his chronic pain management appointment. It was noted that he had hypertension at the time of the visit. He was sent home. Walking up the 5 stairs to get into the house he did get short of breath. This is actually the norm for him when climbing stairs. However when he went into the house he developed central chest pressure. There is no associated diaphoresis, nausea or vomiting. There was no radiation. The discomfort resolved spontaneously with rest. With reasonable concern he presented to the emergency department. Initial troponin study was negative but he was admitted to rule out acute coronary syndrome. Hospital Course Hospital Course: Benign hospital course. Serial troponin studies were negative. No recurrence of pain. 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 Physical Exam Vital Signs: Temp Pulse Resp BP Pulse Ox 98.4 F 100 18 144/85 H 95 07/13/18 14:38 07/13/18 14:38 07/13/18 14:38 07/13/18 14:38 07/13/18 14:38 Intake & Output 07/12/18 07/13/18 07/14/18 06:59 06:59 06:59 Intake Total 640 1582 Balance 640 1582 Weight 124.7 kg General appearance: PRESENT: no acute distress, cooperative, morbidly obese Head exam: PRESENT: atraumatic, normocephalic Eye exam: PRESENT: conjunctiva pink, EOMI. ABSENT: scleral icterus Ear exam: PRESENT: normal external ear exam Mouth exam: PRESENT: moist, neck supple, tongue midline Neck exam: ABSENT: carotid bruit, JVD, lymphadenopathy Respiratory exam: PRESENT: clear to auscultation oxana, symmetrical, unlabored. ABSENT: accessory muscle use, rales, rhonchi, tachypnea, wheezes Cardiovascular exam: PRESENT: RRR, +S1, +S2 GI/Abdominal exam: PRESENT: normal bowel sounds, soft, other - Protuberant abdomen. ABSENT: tenderness Rectal exam: PRESENT: deferred Gentrourinary exam: ABSENT: indwelling catheter Extremities exam: ABSENT: pedal edema Neurological exam: PRESENT: alert, awake, oriented to person, oriented to place, oriented to time, oriented to situation, CN II-XII grossly intact Psychiatric exam: PRESENT: appropriate affect, normal mood. ABSENT: agitated, anxious Focused psych exam: ABSENT: delusional, restlessness Results Laboratory Results: 07/12/18 13:08 07/12/18 13:08 07/12/18 07/12/18 07/12/18 13:08 13:08 13:08 Creatine Kinase 42 L CK-MB (CK-2) < 0.22 Troponin I < 0.012 Cancelled NT-Pro-B Natriuret Pep 44 07/12/18 07/12/18 07/12/18 15:42 18:40 18:40 Creatine Kinase 34 L CK-MB (CK-2) < 0.22 Troponin I < 0.012 < 0.012 NT-Pro-B Natriuret Pep 07/13/18 07/13/18 00:55 00:55 Creatine Kinase 46 L CK-MB (CK-2) < 0.22 Troponin I < 0.012 NT-Pro-B Natriuret Pep Impressions: Chest X-Ray 07/12/18 12:49 IMPRESSION: 1. NO ACUTE RADIOGRAPHIC FINDING IN THE CHEST. Qualifiers - * PATIENT BEING DISCHARGED WITH ANY OF THE FOLLOWING DIAGNOSIS: No Plan Discharge Plan: Follow-up with cardiology and primary care. Time Spent: Greater than 30 Minutes
== END 2018-07-13 15:02 | disposition home or self-care (01) ==
LOC: ER 12:16 → EH 15:43 → 4N 19:51
PROVIDERS: ADMIT Hospitalist; ATTEND Hospitalist
DX: R07.89 Other chest pain (principal); I10 Essential (primary) hypertension; K21.9 Gastro-esophageal reflux disease without esophagitis; J43.9 Emphysema, unspecified; E66.9 Obesity, unspecified; Z68.39 Body mass index [BMI] 39.0-39.9, adult; Z79.51 Long term (current) use of inhaled steroids; Z79.899 Other long term (current) drug therapy; Z90.49 Acquired absence of other specified parts of digestive tract; Z87.891 Personal history of nicotine dependence; Z82.49 Family history of ischemic heart disease and other diseases of the circulatory system; Z84.81 Family history of carrier of genetic disease; Z77.22 Contact with and (suspected) exposure to environmental tobacco smoke (acute) (chronic)
CPT/HCPCS: 93005; 94640 ×3; 99285; 36415; 84439; 82553 ×2; 82550 ×2; 84443; 85025; 80053; 84484 ×2; 84481; 83880; 71045; 93010; 94660; A9270 ×10; J1644 ×2; J3490 ×3; J7030; G0378; J7620

== ENCOUNTER 2018-09-29 05:37 | Emergency (ER) | payer OTHER, MEDICARE, MEDICAID ==
[2018-09-29] MEDS ORDERED: IBUPROFEN 800 MG TABLET PO ONE (09:05)
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
[2018-09-29 11:51] VITALS: BP 149/93
== END 2018-09-29 10:48 | disposition home or self-care (01) ==
LOC: ER 05:37
DX: S16.1XXA Strain of muscle, fascia and tendon at neck level, initial encounter (principal); R07.81 Pleurodynia; R51 Headache; M54.5 Low back pain; V43.52XA Car driver injured in collision with other type car in traffic accident, initial encounter; F17.210 Nicotine dependence, cigarettes, uncomplicated; I10 Essential (primary) hypertension
CPT/HCPCS: 70450; 71250; 99283